=== PATIENT | male | born 1945 | race Caucasian/White ===

== ENCOUNTER 2021-07-07 06:13 | Observation (INO) | payer OTHER, MEDICARE ==
[2021-07-01 12:08] LABS: BASOPHILS % (AUTO) 0.9 % (0.0-5.0); EOSINOPHILS % (AUTO) 4.3 % (0.0-8.0); HEMATOCRIT 46.5 % (42-54); LYMPHOCYTES % (AUTO) 23.2 % (21.0-51.0); MEAN CORPUSCULAR VOLUME 91.2 fL (79-99); MONOCYTES % (AUTO) 7.7 % (3.0-13.0); NEUTROPHILS % (AUTO) 63.6 % (40.0-77.0); PLATELET COUNT (AUTO) 198 K/uL (130-400); RED CELL DISTRIBUTION WIDTH 13.4 % (11.0-15.5); WHITE BLOOD COUNT (AUTO) 6.7 K/uL (4.8-10.8)
[2021-07-01 12:15] LABS: POTASSIUM 4.3 mmol/L (3.5-5.1)
[2021-07-01 12:41] LABS: INR 1.02 (0.85-1.15); PROTHROMBIN TIME 11.1 SEC (9.6-11.6)
[2021-07-01 12:42] LABS: PARTIAL THROMBOPLASTIN TIME 25.5 SEC (26.3-35.5)
[2021-07-06 13:04] VITALS: BP 161/87
[2021-07-07] VITALS (28 sets, daily range): BP systolic 123–150; BP diastolic 59–86
[~2021-07-07] VITALS: Ht 175.3 cm; Wt 106.8 kg
[~2021-07-07 06:13] MED LIST: ACET1TAB25 PO; ATOR10TA69 PO; DULO60CA64 PO; FINA5TAB41 PO; LEVO137C4 PO; LISI1TAB51 PO; OMEP20TA2 PO; TAMS-1 PO
[2021-07-07] MEDS ORDERED: 0.9%NACL 1000ML 0 ML IV ONE (07:47)
[2021-07-07] MEDS ORDERED: LIDOCAINE PF 100MG/5ML (2%) SYRINGE 5ML ONE (07:51)
[2021-07-07] MEDS ORDERED: SUCCINYLCHOLINE CHLORIDE 20 MG/ML 10 ML VIAL ONE (07:51)
[2021-07-07] MEDS ORDERED: DEXAMETHASONE SOD PHOSPHATE 10MG/ML 1ML VIAL ONE (07:51)
[2021-07-07] MEDS ORDERED: MIDAZOLAM HCL 1 MG/ML 2ML VIAL ONE ×2 (07:51→09:41)
[2021-07-07] MEDS ORDERED: GLYCOPYRROLATE 1 MG/5 ML SYRINGE ONE (07:51)
[2021-07-07] MEDS ORDERED: ONDANSETRON 4MG INJ ONE (07:52)
[2021-07-07] MEDS ORDERED: PROPOFOL 10 MG/ML 20ML VIAL IV ONE ×3 (07:52→10:04)
[2021-07-07] MEDS ORDERED: FENTANYL CITRATE PF 50 MCG/1 ML 2ML VIAL ONE (07:52)
[2021-07-07] MEDS ORDERED: NEOSTIGMINE 5MG/5ML SYR IV ONE (07:52)
[2021-07-07] MEDS ORDERED: ROCURONIUM 10MG/1ML SYR 10 MG/ML ML ONE (07:52)
[2021-07-07] MEDS ORDERED: ROPIVICAINE 250MG+KETOROLAC 15MG+EPINEPHRINE 0.3+CLONIDINE 80 IV PRN ×5 (08:00)
[2021-07-07] MEDS ORDERED: CEFAZOLIN SODIUM 1 GM VIAL IVP ONE (08:00)
[2021-07-07] MEDS ORDERED: LACTATED RINGERS 1000ML 1,000 ML IV SCH (08:00)
[2021-07-07] MEDS ORDERED: ROPIVACAINE 0.5% 5MG/ML 30ML IJ ONE (08:06)
[2021-07-07] MEDS ORDERED: TRANEXAMIC ACID 1000MG/10ML ONE (08:22)
[2021-07-07] MEDS ORDERED: ONDANSETRON 4MG INJ IVP PRN (10:30)
[2021-07-07] MEDS: 0.9%NACL 1000ML 1,000 ML IV SCH (10:30)
[2021-07-07] MEDS: ACETAMINOPHEN 500 MG TABLET PO SCH ×2 (10:30→18:15)
[2021-07-07] MEDS ORDERED: OXYCODONE HCL 5 MG TAB PO PRN (10:30)
[2021-07-07] MEDS ORDERED: HYDROCODONE/ACETAMINOPHEN 5/325 MG TAB PO PRN (10:30)
[2021-07-07] MEDS ORDERED: MORPHINE 4 MG SYG IVP PRN (10:30)
[2021-07-07] MEDS ORDERED: PHENYLEPHRINE HCL 10 MG/ML 1ML VIAL IV ONE ×2 (11:15→11:17)
[2021-07-07] MEDS: TRAMADOL HCL 50 MG TABLET PO SCH ×2 (12:00→18:18)
[2021-07-07] MEDS: CEFAZOLIN SODIUM 1 GM VIAL IVP SCH (16:41)
[2021-07-07] MEDS: HYDROCHLOROTHIAZIDE 25 MG TABLET PO SCH (21:06)
[2021-07-07] MEDS: LISINOPRIL 20 MG TABLET PO SCH (21:07)
[2021-07-07] MEDS: FINASTERIDE 5 MG TABLET PO SCH (21:07)
[2021-07-07] MEDS: TAMSULOSIN HCL 0.4 MG CAP.ER.24H PO SCH (21:08)
[2021-07-07] MEDS: CELECOXIB 200 MG CAP PO SCH (21:08)
[2021-07-08] MEDS: CEFAZOLIN SODIUM 1 GM VIAL IVP SCH (00:20)
[2021-07-08] MEDS: TRAMADOL HCL 50 MG TABLET PO SCH ×4 (00:21→18:05)
[2021-07-08 03:53] VITALS: BP 136/75
[2021-07-08] MEDS: ACETAMINOPHEN 500 MG TABLET PO SCH ×3 (03:56→18:06)
[2021-07-08] MEDS: 0.9%NACL 1000ML 1,000 ML IV SCH ×2 (03:56→06:30)
[2021-07-08 04:22] LABS: HEMATOCRIT 39.3 % (42-54); MEAN CORPUSCULAR HEMOGLOBIN 30.7 pg (27.0-33.0); MEAN CORPUSCULAR HGB CONC 35.6 g/dL (32.0-36.0); MEAN CORPUSCULAR VOLUME 86.2 fL (79-99); RED BLOOD CELL COUNT(AUTO) 4.56 MIL/uL (4.50-6.20); RED CELL DISTRIBUTION WIDTH 13.1 % (11.0-15.5); WHITE BLOOD COUNT (AUTO) 14.6 K/uL (4.8-10.8)
[2021-07-08 04:44] LABS: CREATININE 1.1 mg/dL (0.5-1.5); POTASSIUM 3.9 mmol/L (3.5-5.1)
[2021-07-08] MEDS: LEVOTHYROXINE 25 MCG TABLET PO SCH (06:05)
[2021-07-08] MEDS: LEVOTHYROXINE 112 MCG TABLET PO SCH (06:05)
[2021-07-08 07:30] VITALS: BP 141/73
[2021-07-08] MEDS: POLYETHYLENE GLYCOL 3350 17 GM POWD.PACK PO SCH (09:19)
[2021-07-08] MEDS: DULOXETINE HCL 30 MG CAP PO SCH (09:19)
[2021-07-08] MEDS: LISINOPRIL 20 MG TABLET PO SCH ×2 (09:20→20:05)
[2021-07-08] MEDS: HYDROCHLOROTHIAZIDE 25 MG TABLET PO SCH ×2 (09:20→20:05)
[2021-07-08] MEDS: PANTOPRAZOLE 40 MG TAB DR PO SCH (09:20)
[2021-07-08] MEDS: CELECOXIB 200 MG CAP PO SCH ×2 (09:21→20:05)
[2021-07-08 11:00] VITALS: BP 92/48
[2021-07-08 16:00] VITALS: BP 125/66
[2021-07-08 19:59] VITALS: BP 137/69
[2021-07-08] MEDS: FINASTERIDE 5 MG TABLET PO SCH (20:05)
[2021-07-08] MEDS: TAMSULOSIN HCL 0.4 MG CAP.ER.24H PO SCH (20:05)
[2021-07-08 23:18] VITALS: BP 135/67
[2021-07-09] MEDS: TRAMADOL HCL 50 MG TABLET PO SCH ×4 (00:01→17:12)
[2021-07-09] MEDS: ACETAMINOPHEN 500 MG TABLET PO SCH ×3 (01:45→17:13)
[2021-07-09 03:41] VITALS: BP 128/76
[2021-07-09] MEDS: LEVOTHYROXINE 112 MCG TABLET PO SCH (05:48)
[2021-07-09] MEDS: LEVOTHYROXINE 25 MCG TABLET PO SCH (05:48)
[2021-07-09 07:30] VITALS: BP 113/59
[2021-07-09] MEDS: PANTOPRAZOLE 40 MG TAB DR PO SCH (08:58)
[2021-07-09] MEDS: DULOXETINE HCL 30 MG CAP PO SCH (08:59)
[2021-07-09] MEDS: CELECOXIB 200 MG CAP PO SCH (08:59)
[2021-07-09] MEDS: LISINOPRIL 20 MG TABLET PO SCH (08:59)
[2021-07-09] MEDS: HYDROCHLOROTHIAZIDE 25 MG TABLET PO SCH (08:59)
[2021-07-09] MEDS ORDERED: ASPIRIN 81 MG EC TAB PO SCH (09:00)
[2021-07-09] MEDS: POLYETHYLENE GLYCOL 3350 17 GM POWD.PACK PO SCH (09:00)
[2021-07-09 11:00] VITALS: BP 113/62
[2021-07-10] MEDS ORDERED: BISACODYL 10 MG SUPP.RECT RC PRN (10:30)
== END 2021-07-09 18:30 | disposition home or self-care (01) ==
LOC: DAH 06:13 → DAHIP 06:14 → DAH 06:14 → 4AH 14:23
PROVIDERS: ADMIT Orthopaedic Surgery; ATTEND Orthopaedic Surgery
DX: M17.12 Unilateral primary osteoarthritis, left knee (principal); Z20.822 Contact with and (suspected) exposure to COVID-19; I10 Essential (primary) hypertension; K21.9 Gastro-esophageal reflux disease without esophagitis; M93.20 Osteochondritis dissecans of unspecified site; N40.0 Benign prostatic hyperplasia without lower urinary tract symptoms; E03.9 Hypothyroidism, unspecified
CPT/HCPCS: 27447; 36415 ×2; 71045; 73560; 80048 ×2; 85025; 85027; 85610; 85730; 87635; 87641; 93005; 96361; 96374; 96376; 97039 ×4; 97116 ×4; 97161; 97530 ×4; A4600; A4649 ×6; A4930 ×3; A6212; A6219; A6260; C1776; C9803; G0378 ×52; J0330; J0690 ×3; J1100; J2250 ×2; J2370; J2405; J2704 ×3; J2795; J3010; J3490; J7030; J7120 ×2; J2001; J2710